=== PATIENT | male | born 1980 ===

== ENCOUNTER → 2017-02-27 | Outpatient (CLI) | payer OTHER | LOC: MHCPAIN 10:52 | DX: G89.29 Other chronic pain (principal); M47.817 Spondylosis without myelopathy or radiculopathy, lumbosacral region; M53.3 Sacrococcygeal disorders, not elsewhere classified; M96.1 Postlaminectomy syndrome, not elsewhere classified | CPT/HCPCS: G0463 ==

== ENCOUNTER → 2017-03-07 | Outpatient (CLI) | payer OTHER | LOC: MHCPAIN 11:46 | DX: M47.817 Spondylosis without myelopathy or radiculopathy, lumbosacral region (principal); M96.1 Postlaminectomy syndrome, not elsewhere classified; M12.88 Other specific arthropathies, not elsewhere classified, other specified site | CPT/HCPCS: J1040; Q9967 ==

== ENCOUNTER → 2017-03-20 | Outpatient (CLI) | payer OTHER | LOC: MHCPAIN 11:38 | DX: G89.29 Other chronic pain (principal); M47.817 Spondylosis without myelopathy or radiculopathy, lumbosacral region; M96.1 Postlaminectomy syndrome, not elsewhere classified | CPT/HCPCS: G0463 ==